=== PATIENT | male | born 1970 | race Caucasian/White ===

== ENCOUNTER 2020-04-08 01:14 | Emergency (ER) | payer SELFPAY ==
[~2020-04-08] VITALS: Ht 162.6 cm; Wt 73.0 kg
[2020-04-08] MEDS ORDERED: LIDOCAINE 1%/EPI 1:100,000 10 ML VIAL IJ ONE (03:15)
[2020-04-08] MEDS ORDERED: TETANUS, DIPHTHERIA, PERTUSSIS VAC/PF 0.5ML (>7YR OLD) IM ONE (03:15)
[2020-04-08] MEDS ORDERED: BACITRACIN ZINC OINT UDPKT TOP ONE (03:15)
[2020-04-08 04:43] VITALS: BP 136/78
== END 2020-04-08 04:45 | disposition home or self-care (01) ==
LOC: ER 01:14
DX: S01.81XA Laceration without foreign body of other part of head, initial encounter (principal); Y08.89XA Assault by other specified means, initial encounter; Y93.89 Activity, other specified; Y92.89 Other specified places as the place of occurrence of the external cause; Y99.8 Other external cause status
CPT/HCPCS: 12014; 90471; 90715; 99283; J3490; Z7610

== ENCOUNTER 2020-04-11 16:35 | Emergency (ER) | payer SELFPAY ==
[~2020-04-11] VITALS: Ht 165.1 cm; Wt 91.0 kg
[2020-04-11 18:32] VITALS: BP 128/75
== END 2020-04-11 18:43 | disposition home or self-care (01) ==
LOC: ER 16:35
DX: Z48.02 Encounter for removal of sutures (principal)
CPT/HCPCS: 99281